=== PATIENT | female | born 1985 | race Two or more races ===

== ENCOUNTER 2021-05-01 13:16 | Outpatient (CLI) | payer OTHER | END 2021-05-01 14:50 | disposition home or self-care (01) | LOC: PRENATAL 13:16 | PROVIDERS: ATTEND Obstetrics & Gynecology Maternal & Fetal Medicine | DX: O35.0XX1 Maternal care for (suspected) central nervous system malformation in fetus, fetus 1 (principal); O35.3XX1 Maternal care for (suspected) damage to fetus from viral disease in mother, fetus 1; O98.512 Other viral diseases complicating pregnancy, second trimester; O28.1 Abnormal biochemical finding on antenatal screening of mother; O24.410 Gestational diabetes mellitus in pregnancy, diet controlled; Z36.89 Encounter for other specified antenatal screening; Z3A.22 22 weeks gestation of pregnancy ==

== ENCOUNTER 2021-08-27 08:11 | Inpatient (IN) | payer OTHER ==
[~2021-08-27] VITALS: Ht 180.3 cm; Wt 71.2 kg
[2021-08-27] MEDS ORDERED: PRENATAL CAPLE1 EAC1 (08:58)
[2021-08-27] MEDS ORDERED: CHILDREN'S ASPI81 MG (09:00)
[2021-08-27] MEDS ORDERED: VITAL-D RX TAB1 EACH (09:00)
[2021-08-27] MEDS ORDERED: LEVOTHYROXINE25 MCG PO (09:00)
[2021-08-27] MEDS ORDERED: VITAMIN C100 MG (09:01)
== END 2021-08-29 16:23 | disposition home or self-care (01) | DRG 805 ==
LOC: LDR 08:11 → OB/GYN 16:16
PROVIDERS: ADMIT Specialist; ATTEND Specialist
PROC: 10E0XZZ Delivery of Products of Conception, External Approach (ICD-10-PCS; principal; 2021-08-27)
PROC: 0KQM0ZZ Repair Perineum Muscle, Open Approach (ICD-10-PCS; 2021-08-27)
PROC: 10907ZC Drainage of Amniotic Fluid, Therapeutic from Products of Conception, Via Natural or Artificial Opening (ICD-10-PCS; 2021-08-27)
PROC: 3E033VJ Introduction of Other Hormone into Peripheral Vein, Percutaneous Approach (ICD-10-PCS; 2021-08-27)
PROC: 4A1HXFZ Monitoring of Products of Conception, Cardiac Rhythm, External Approach (ICD-10-PCS; 2021-08-27)
DX: O70.1 Second degree perineal laceration during delivery (principal); O24.12 Pre-existing type 2 diabetes mellitus, in childbirth; O41.03X0 Oligohydramnios, third trimester, not applicable or unspecified; Z37.0 Single live birth; O26.893 Other specified pregnancy related conditions, third trimester; Z67.41 Type O blood, Rh negative; Z3A.38 38 weeks gestation of pregnancy